=== PATIENT | female | born 1970 | race Caucasian/White ===

== ENCOUNTER 2024-02-10 17:49 | Emergency (ER) | payer BC, SELFPAY ==
[2024-02-10 17:52] VITALS: BP 144/100
[2024-02-10 18:20] LABS: % Eosinophils 0.3 % (0-6); % Immature Granulocytes 0.5 % (0-0.5); % Lymphocytes 21.7 % (20.5-51.1); % Monocytes 12.3 % (1.7-9.3); % Neutrophils 64.2 % (42.2-75.2); Absolute Lymphocytes 0.9 10^3/uL (1.2-3.4); Absolute Monocytes 0.5 10^3/uL (0.1-0.6); Absolute Neutrophils 2.5 10^3/uL (1.4-6.5); Hematocrit 37.4 % (37.0-47.0); Hemoglobin 13.4 g/dL (12.0-16.0); Mean Corp Hgb Conc. 35.8 g/dL (33.0-37.0); Mean Corpuscular Hgb 33.3 pg (27.0-31.0); Mean Corpuscular Volume 92.8 fL (81.0-99.0); Mean Platelet Volume 8.8 fL (7.4-10.4); Nucleated Red Blood Cells % 0 %; Platelet Count 127 10^3/uL (130-400); Red Blood Cell Count 4.03 10^6/uL (4.20-5.40); Red Cell Dist. Width 13.4 % (11.5-14.5); White Blood Cell Count 3.9 10^3/uL (4.8-10.8)
[2024-02-10 18:27] LABS: ALT (SGPT) 35 U/L (0-35); AST (SGOT) 50 U/L (14-36); Albumin 5.5 g/dl (3.5-5.0); Alkaline Phosphatase 60 U/L (38-126); Blood Urea Nitrogen 8 mg/dl (7-17); Calcium 10.1 mg/dl (8.4-10.2); Carbon Dioxide 25 mmol/L (22-30); Chloride 94 mmol/L (98-107); Glucose 132 mg/dl (70-99); Potassium 3.9 mmol/L (3.5-5.1); Sodium 139 mmol/L (135-145); Total Bilirubin 1.3 mg/dl (0.2-1.3); Total Protein 8.3 g/dl (6.3-8.2); eGFR > 60.00
[2024-02-10 19:58] VITALS: BMI 26.4
[2024-02-10 20:00] VITALS: BP 168/86
--- NOTE | 2024-02-10 20:00 | EDRN ---
Pt states she has not drank any alcohol for a week. Pt states normally she drinks unknown quantity of wine and rum. Pt states she arrives for CT of her head r/t high BP that her PCP sent her here for this. Daughter in room w/ pt. Pt is very shaky
when ambulating and arms when up in front of her show tremors.
[2024-02-10 20:01] VITALS: BP 168/86
--- NOTE | 2024-02-10 20:06 | EDRN ---
Gabe MCCORMACK in room w/pt.
--- NOTE | 2024-02-10 20:11 | ED.GENMED ---
History of Present Illness
General
Chief Complaint: Withdrawal Symptoms
Source: patient
Exam Limitations: none
Time Seen by Provider: 02/10/24 19:27
History of Present Illness
History of Present Illness:
This is a 54 year old female that comes in with c/o shaking. States that she went to and was told to come to the ER for evaluation. States that she has been shaking all day. States that she was nauseated in the morning. Daughter states that she
is forgetful and patient states that she did not sleep last night. States that the last time she had alcohol was a week ago. States that she is dizzy. Denies any fever, chills, chest pain, SOB, abd pain, nausea, vomiting, diarrhea, headache, urinary
burning.
Past History
Past History
ED Past Medical History: Psychiatric (Anxiety, Depression. ) and Other (Back pain, Tingling and dizziness, Endometriosis. Rosacea)
ED Past Surgical History: None and Gynecological (Invetro)
Social History
Tobacco: Non-smoker
Alcohol: Occasional ('More then she shoulder' wine or rum, 1 bottle of wine)
Drug: None
Personal:
Living: with family
Employment: Employed
Family History
Family History: Other (Noncontributory)
Review of Systems
Review of Systems
All Other Systems: ROS reviewed and negative except as documented in HPI and ROS
Constitutional: Reports no symptoms; Denies fever or chills
EENT: Reports no symptoms
Respiratory: Reports no symptoms; Denies cough or trouble breathing
Cardiac: Reports no symptoms; Denies chest pain
ABD/GI: Reports nausea; Denies abdominal pain, vomiting or diarrhea
: Reports no symptoms; Denies dysuria, frequency or urgency
Musculoskeletal: Reports no symptoms
Skin: Reports no symptoms
Neurological: Reports dizzy and other (Shaking all over); Denies headache
Psychiatric: Reports no symptoms
Phy Exam
General Physical Exam
General Presentation: mild distress
General age: appears stated age
General Skin: warm and dry
General Habitus: normal
General Mental: alert
General Hydration: dry mucous membranes
ENT Exam
ENT Exam: TM's normal, pharynx normal and neck supple
Eye Exam
Eye Exam: EOMI
Cardiovascular Exam
Cardiovascular Exam: regular rate/rhythm, no edema, no murmur and normal peripheral pulses
Pulmonary Exam
Pulmonary Exam: lungs clear, no respiratory distress, no rales, chest non tender, no crackles, no rhonchi, no wheezing and no cough
Gastrointestinal Exam
Gastrointestinal Exam: normal bowel sounds, non tender, soft, no organomegaly, no pulsatile mass and non distended
Musculoskeletal Exam
Musculoskeletal Exam: full ROM, no edema and other (Generalized shaking, appears to be with drawling)
Skin Exam
Skin Exam: normal color, warm/dry, no rash and no petechia
Psychiatric Exam
Psychiatric Exam: normal mood/affect
Scores
Withdrawal Assessment of Alcohol
Withdrawal Assessment Completed?: Yes
Nausea and Vomiting: No nausea and no vomiting
Tactile Disturbances: None
Tremor: Moderate, with patient's arms extended
Auditory Disturbances: Not present
Paroxysmal Sweats: No sweat visible
Visual Disturbances: Not present
Anxiety: Mild anxiety
Headache, Fullness in Head: Not present
Agitation: Normal activity
Orientation and clouding of sensorium: Oriented and can do serial additions
Total CIWA Score: 5
Alcohol Withdrawal Medication Recommendation: Equal to MSAS Score 0-4. Monitor & re-assess q2hrs, NO MEDICATION NEEDED
Course
Orders/Labs/Results
Orders:
Orders
02/10/24 18:00
Alcohol Urgent
Complete Blood Count/With Diff Urgent
Comprehensive Metabolic Panel Urgent
02/10/24 20:11
Add On- LAB Urgent
Tests Added?: alcohol
CT Head W/o Iv Contrast Urgent
Comment:
Reason For Exam: Dizzines, shaking
0.9% Sodium Chloride 1000 ml [Nss] 1,000 ml IV BOLUS
Lorazepam [Ativan] 1 mg PO NOW STA
02/10/24 20:12
Ondansetron Injectable [Zofran] 4 mg IV NOW STA
Pantoprazole [Protonix IV] 40 mg IV NOW STA
Abnormal Lab Results
02/10/24
18:00
WBC 3.9 L 10^3/uL
(4.8-10.8)
RBC 4.03 L 10^6/uL
(4.20-5.40)
MCH 33.3 H pg
(27.0-31.0)
Plt Count 127 L 10^3/uL
(130-400)
Absolute Lymphs (auto) 0.9 L 10^3/uL
(1.2-3.4)
Monocytes % 12.3 H %
(1.7-9.3)
Chloride 94 L mmol/L
(98-107)
Creatinine 0.5 L mg/dL
(0.6-1.0)
Glucose 132 H mg/dl
(70-99)
AST 50 H U/L
(14-36)
Total Protein 8.3 H g/dl
(6.3-8.2)
Albumin 5.5 H g/dl
(3.5-5.0)
02/10/24 18:00
02/10/24 18:00
Leukopenia, Plt slightly low. Chloride low. hyperglycemia. AST elevation. (alcohol use), Albumin slighlty elvated.
Vital Signs
Initial and Last Documented VS:
Initial Vital Signs
Temp Pulse Resp BP Pulse Ox
98.2 F 82 16 144/100 98
02/10/24 17:52 02/10/24 17:52 02/10/24 17:52 02/10/24 17:52 02/10/24 17:52
Last Documented Vital Signs
Temp Pulse Resp BP Pulse Ox
98.2 F 74 28 168/86 99
02/10/24 17:52 02/10/24 20:01 02/10/24 20:01 02/10/24 20:01 02/10/24 20:01
MDM/Problems Addressed
Differential Diagnosis Includes:
Alcohol withdraw,
MDM/Problems Addressed:
This is a 54 year old female that is brought in with c/o shaking. States that she has been shaking all day. State that she has not had any alcohol in a week. States that she is nauseated and that she didn't sleep all night.
Will check labs, CT head, give IV fluids and Ativan. Offered patient [facility] and inpatient treatment for Detox and patient refused.
Back into see patient. Patient is less tremulous. States that she is feeling better. Patient states that she is ready to go home. Patient to return with any concerns.
Chronic conditions affecting care:
NA
Acute Exacerbation and/or Progression of Chronic Illness:
NA
*Radiology
Radiology exam reviewed: radiology read reviewed (CT head-NO evidence of acute intracranial abnoramality )
*Pulse Oximetry
Patient hypoxic: no
*EKG
Interpreted by ED Provider?: NA
Rate: EKG- N/A
*[employer] Interpretation
Rate: normal
Heart Rate: 72
Rhythm: sinus
*Critical Care Note
Total Time (30-74mins, 75-104mins- exclusive of procedures): Not Applicable
ED Attending Note
-
Portions of this chart may have been created with voice recognition software.� Occasional wrong word or��sound alike� substitutions may have occurred due to the inherent limitations of voice recognition software.
Discharge Plan
Departure
Patient Disposition: Home (Routine Discharge)
Date of Disposition: 02/10/24
Time of Disposition: 21:54
Patient with high blood pressure during this ER visit?: Yes
Condition: Good
Covid-19: Not Applicable
Discharge Problem:
Alcohol withdrawal
Instructions: Alcohol Withdrawal (DC), BLOOD PRESSURE
Prescriptions:
No Action
No Current Medications
0
Referrals:
UNKNOWN - PT DOES,NOT KNOW [Unknown Provider] -
Activity Restrictions/Additional Instructions:
As discussed, your blood work shows that your liver enzyme is slightly elevated. This is due to the alcohol use. Your CT of the head is normal. Please increase your water intake to 8-8oz glasses daily. Follow up with the family doctor for further
evaluation. IF YOU HAVE INCREASED SHAKING, YOU ARE INTERESTED IN PATIENT DETOX OR YOU HAVE ANY OTHER CONCERNS PLEASE RETURN TO THE EMERGENCY ROOM.
Interventions
Interventions:
*Risk Screen - Suicide Last Done: 02/10/24 17:52
*General Assessment Last Done: 02/10/24 19:59
*Neglect/Abuse Screening Last Done: 02/10/24 17:52
ED- Fall Risk Assessment Last Done: 02/10/24 20:04
*ED COVID-19 Vaccine History Last Done: 02/10/24 19:59
ED- Neurological Assessment Last Done: 02/10/24 20:04
ED-Psychological Assessment Last Done: 02/10/24 20:04
Discharge Date and Time
Print Language: [id number]
[2024-02-10] MEDS: ATIVAN 1 MG PO (20:21)
[2024-02-10] MEDS: PROTONIX IV 40 MG IV (20:29)
[2024-02-10] MEDS: NSS 1000 IV (20:29)
[2024-02-10] MEDS: ZOFRAN 4 MG IV (20:29)
[2024-02-10 20:51] LABS: Alcohol None Detected
[2024-02-10 21:56] VITALS: BP 148/75
== END 2024-02-10 22:08 | disposition home or self-care (01) ==
LOC: EMR 17:49
PROVIDERS: Emergency Medicine; EMERGENCY PHYSICIAN Emergency Medicine; FAMILY PHYSICIAN Family Medicine
DX: F10.939 Alcohol use, unspecified with withdrawal, unspecified (principal); R25.1 Tremor, unspecified; D72.819 Decreased white blood cell count, unspecified; F41.9 Anxiety disorder, unspecified
CPT/HCPCS: 99284; 96374; 96375; 70450; 80053; 82077; 85025